=== PATIENT | female | born 1995 | race Caucasian/White ===

== ENCOUNTER 2021-10-12 08:42 | Emergency (ER) | payer OTHER ==
[~2021-10-12] VITALS: Ht 154.9 cm; Wt 59.0 kg
[2021-10-12] MEDS ORDERED: ALBUTEROL SULF 2.5 MG/0.5ML(0.5%) NEB SOLN NEB ONE (09:15)
[2021-10-12] MEDS ORDERED: IPRATROPIUM BROM 0.5 MG/2.5ML INH SOL NEB ONE (09:15)
[2021-10-12] MEDS ORDERED: methylPREDNISolone SOD SUCC 125 MG/2 ML VL IM ONE (09:15)
[2021-10-12 09:43] VITALS: BP 89/64
[2021-10-12 11:10] LABS: Urine Bacteria FEW /hpf (None Seen); Urine Blood Negative /uL (Negative); Urine Hyaline Cast FEW /lpf (0 - 2); Urine WBC 82 /hpf (0 - 5)
[2021-10-12] MEDS ORDERED: PRED1PAK9 PO (11:40)
[2021-10-12] MEDS ORDERED: ALBUAER3 IN (11:40)
[2021-10-12] MEDS ORDERED: NITR-87 PO (11:40)
[2021-10-12] MEDS ORDERED: cefTRIAXone SOD 1,000 MG VL IM ONE (11:45)
== END 2021-10-12 12:03 | disposition home or self-care (01) ==
LOC: ER 08:42
DX: J45.901 Unspecified asthma with (acute) exacerbation (principal); N39.0 Urinary tract infection, site not specified
CPT/HCPCS: 71045; 81001; 93005; 94640; 96372; 99285; J0696; J7644